=== PATIENT | male | born 1950 | race Caucasian/White ===

== ENCOUNTER 2016-12-27 07:44 | Day surgery (SDC) | payer OTHER ==
[~2016-12-27] VITALS: Ht 180.3 cm; Wt 99.7 kg
[~2016-12-27 07:44] MED LIST: DIOVAN160 MG PO; FLOMAX0.4 MG PO; LANTUS 3 M100 UNITS1 SC; NOVOLOG PE100 UNITS/ SC; PROSCAR5 MG PO; ZOCOR20 MG PO; ZOLOFT50 MG PO
[2016-12-27 08:16] LABS: MCH 30.1 PG (29.0-34.0); MCHC 35.3 G/DL (30.0-36.0); MCV 85.1 FL (86-99); MEAN PLAT.VOLUME 10.3 uM^3 (9.0-12.4); PLATELET COUNT 190 K/uL (156-360); RBC DIS.WIDTH-CV 12.5 % (11.8-14.6); RBC DIS.WIDTH-SD 38.5 % (39-53); RED BLOOD COUNT 3.76 M/uL (4.00-5.50); WHITE BLOOD COUNT 8.7 K/uL (4.1-10.2)
[2016-12-27 08:19] VITALS: BP 174/97
[2016-12-27 08:45] LABS: ANION GAP 12 MEQ/L (2-14); CHLORIDE 108 MEQ/L (99-109); GFR ESTIMATE (CALCULATED) 16 mL/min/; GLUCOSE 153 mg/dL (70-99); SAMPLE HEMOLYSIS CHECK 1; SAMPLE ICTERIC CHECK 0; SAMPLE LIPEMIA CHECK 0; SODIUM 137 MEQ/L (136-147); UREA NITROGEN (BUN) 57 mg/dL (9-23)
[2016-12-27 09:18] LABS: METH RESISTANT S AUREUS PCR NEGATIVE (NEGATIVE)
[2016-12-27 09:19] LABS: PROBE CHECK PASS; SPECIMEN PROCESSING CONTROL PASS
[2016-12-27 11:37] LABS: POINT-OF-CARE METER ID UU13113675; POINT-OF-CARE USER ID LABLCH83
[2016-12-27] MEDS ORDERED: NORCO 5/3251 TABLET PO (11:50)
[2016-12-27 12:10] VITALS: BP 174/85
[2016-12-27 13:00] VITALS: BP 130/68
== END 2016-12-27 13:20 | disposition home or self-care (01) ==
LOC: SDC 07:44 → EDSTATUS 09:43 → 2SOUTH 09:43 → SDC 09:48
PROVIDERS: Surgery
PROC: 0WHG43Z Insertion of Infusion Device into Peritoneal Cavity, Percutaneous Endoscopic Approach (ICD-10-PCS; principal; 2016-12-27)
DX: I12.0 Hypertensive chronic kidney disease with stage 5 chronic kidney disease or end stage renal disease (principal); E11.22 Type 2 diabetes mellitus with diabetic chronic kidney disease; N18.6 End stage renal disease; Z86.14 Personal history of Methicillin resistant Staphylococcus aureus infection; Z79.4 Long term (current) use of insulin; Z79.82 Long term (current) use of aspirin; Z82.49 Family history of ischemic heart disease and other diseases of the circulatory system; Z83.3 Family history of diabetes mellitus; N40.0 Benign prostatic hyperplasia without lower urinary tract symptoms
CPT/HCPCS: 80048; 82948; 85027; 87641; C1750; J0131; J0330; J0690; J2405; J2710; J2765; J3010; S0020

== ENCOUNTER 2017-10-22 07:01 | Day surgery (SDC) | payer OTHER ==
[~2017-10-22] VITALS: Ht 182.9 cm; Wt 118.0 kg
[~2017-10-22 07:01] MED LIST changes: +ARANESP10 MCG/0.4 IM/SC; +LASIX40 MG PO; +LIPITOR20 MG PO; +MINIPRESS2 MG PO; +NORCO 5/3251 TABLET PO; +NORMODYNE,TRAN200 MG PO; +PROTONIX40 MG PO
[2017-10-22 07:45] LABS: HEMATOCRIT 28.8 % (38.0-50.0); HEMOGLOBIN 9.3 G/DL (12.5-16.6); MCH 28.3 PG (29.0-34.0); MCHC 32.3 G/DL (30.0-36.0); MCV 87.5 FL (86-99); NRBC (%) 0.3 /100 WBC (0-0); PLATELET COUNT 170 K/uL (156-360); RBC DIS.WIDTH-CV 14.2 % (11.8-14.6); RBC DIS.WIDTH-SD 45.7 % (39-53); RED BLOOD COUNT 3.29 M/uL (4.00-5.50)
[2017-10-22 07:48] VITALS: BP 163/78
[2017-10-22 08:12] LABS: CHLORIDE 111 MEQ/L (99-109); CREATININE 6.7 MG/DL (0.6-1.3); GFR ESTIMATE (CALCULATED) 9 mL/min/ (58.99-99999); GLUCOSE 119 mg/dL (70-99); POTASSIUM 4.4 MEQ/L (3.7-5.4); SODIUM 140 MEQ/L (136-147); UREA NITROGEN (BUN) 90 mg/dL (9-23)
[2017-10-22 11:07] VITALS: BP 174/85
[2017-10-22 11:40] VITALS: BP 161/81
== END 2017-10-22 11:40 | disposition home or self-care (01) ==
LOC: SDC 07:01
PROVIDERS: Surgery
PROC: 0JWT33Z Revision of Infusion Device in Trunk Subcutaneous Tissue and Fascia, Percutaneous Approach (ICD-10-PCS; principal; 2017-10-22)
DX: I12.0 Hypertensive chronic kidney disease with stage 5 chronic kidney disease or end stage renal disease (principal); E11.22 Type 2 diabetes mellitus with diabetic chronic kidney disease; N18.6 End stage renal disease; Z79.4 Long term (current) use of insulin; N40.0 Benign prostatic hyperplasia without lower urinary tract symptoms; J44.9 Chronic obstructive pulmonary disease, unspecified; Z86.14 Personal history of Methicillin resistant Staphylococcus aureus infection; Z87.891 Personal history of nicotine dependence; Z88.8 Allergy status to other drugs, medicaments and biological substances
CPT/HCPCS: 80048; 82948; 85027; 87641; 93005; J0690; J2250; J3010; S0020